=== PATIENT | male | born 1985 | race Two or more races ===

== ENCOUNTER 2018-03-14 07:18 | Emergency (ER) | payer SELFPAY ==
[2018-03-14 07:26] VITALS: BP 111/73
--- NOTE | 2018-03-14 07:39 | EDPHY ---
H & P Time Seen by Provider: 03/14/18 07:28 HPI/ROS: CHIEF COMPLAINT: Soreness in discharge to the right eyelid and right methodist HISTORY OF PRESENT ILLNESS: Previously healthy 32-year-old male noted some 4 days ago a area of mild discomfort in irritation to the right eyelid and eyebrow followed by some scab formation the next day. Somewhere along the line he also developed a scab on the midportion of the right methodist. However at no point was there any vesicular is a downs or pustule formation. Furthermore he can't does not recall any specific trauma to the area such as bumping it. 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 Furthermore, he has no one in the household who has a history of MRSA. He did have chickenpox as a child The eye itself per se is not bothering him. There is no eye discharge or sticking the eyelids this morning. Is strictly limited to the junction of the eyebrow and eyelid, as well as the right methodist Contact Lenses - yes, there in now. He took them out for us, so as to allow the staining Eye drops none Eye surgery none He would not characterize this as a pain as much as an ache maybe 3/10 and a slight irritation almost like an itching. It does not radiate, is onset some 5- 4 days ago, and no associated discharge ROS: Constitutional - no fevers or chills Eyes - no diplopia, blurred vision, or discharge ENT - no earache, change in hearing, difficulty swallowing, sore throat 10 point ROS otherwise negative Smoking Status: Current some day smoker Physical Exam: General Appearance: Alert, no distress. Afebrile. Normal phonation. No respiratory distress. Eyes: Pupils equal and round no pallor or injection. No icterus. No ptosis. No spasm or pain with light. No preauricular nodes. There is a 1 cm x 0.5 cm x 0.5 cm triangular shaped scabbed over area over the mid portion of the eyebrow which has a junction to the upper portion of the eyelid. This is a scab nature no vesicular as a downs seen. On the midportion of the right methodist there is also another lesion, smaller nature, somewhat round, scabbed over. No clear vesicular is a downs noted. Slit Lamp: Deep, clear quiet anterior chamber without cells or flare. No hyphema or hypopion or ulcer Flourescein: Negative staining. No dendritic lesions or any lesions whatsoever ENT, Mouth: Mucous membranes moist. Pharynx without erythema or exudate. TM Clear. Sinuses nontender. Neck: No adenopathy. Supple. Neurological: Ox3. Gait nl. Skin: Warm and dry, no rashes. Psych: Calm. Constitutional: Initial Vital Signs Temperature (C) 36.3 C 03/14/18 07:22 Heart Rate 54 L 03/14/18 07:22 Respiratory Rate 16 03/14/18 07:22 Blood Pressure 111/73 03/14/18 07:22 O2 Sat (%) 96 03/14/18 07:22 O2 Delivery Mode Room Air Allergies/Adverse Reactions: No Known Allergies Allergy (Verified 03/14/18 07:28) Home Medications: Medication Instructions Recorded Acyclovir 800 mg PO 5XD #35 tab 03/14/18 Cephalexin [Keflex (*)] 500 mg PO TID #30 cap 03/14/18 Medical Decision Making ED Course/Re-evaluation: The there is no vesiculization, most likely this involves a herpes zoster ophthalmicus branch of the right facial nerve 5. At least 10% of the people's with herpes zoster do not exactly report pain as much as irritation, as in the case of this gentleman. He and I talked about valacyclovir three times daily verses acyclovir for five times daily, which he opted for the latter. 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 I have discussed case with Dr. Caruso. Dr. Caruso notes that if he develops any switch form of eye involvement such as pain or discharge or erythema that she be seen. In the interim he will be referred for follow-up in some 2 days time. The patient has been made aware at length of his potential for contagion of others. Differential Diagnosis: Diagnostic considerations include, but are not limited to, the following: Corneal laceration, corneal abrasion, Corneal FB, conjunctival foreign body, allergic conjunctivitis, bacterial conjunctivitis, viral conjunctivitis, chemical conjunctivitis, herpes zoster Departure - Departure Disposition: Home, Routine, Self-Care Clinical Impression: Herpes zoster Qualifiers: Herpes zoster complications: without complications Qualified Code(s): B02.9 - Zoster without complications Condition: Good Instructions: Shingles (ED) Additional Instructions: Your contagious to direct contact. It is important that you do not touch you' re face and then other. Wash her hands for 20 sec whenever he thinks he might have touched your forehead. If you start having eye pain or eye redness you need to come back immediately Follow-up with the scooter mechanic, Dr. Ho You're medications will include: Keflex 3 times a day Acyclovir 5 times a day Referrals: NONE *PRIMARY CARE P,. [Primary Care Provider] - As per Instructions Petey Caruso MD [Medical Doctor] - As per Instructions Prescriptions: Acyclovir 800 mg PO 5XD #35 tab Cephalexin [Keflex (*)] 500 mg PO TID #30 cap
== END 2018-03-14 08:07 | disposition home or self-care (01) ==
LOC: CED 07:18
DX: B02.9 Zoster without complications (principal); F17.200 Nicotine dependence, unspecified, uncomplicated